=== PATIENT | male | born 1960 | race Hispanic/Latino ===

== ENCOUNTER 2018-07-01 06:12 | Day surgery (SDC) | payer MEDICAID ==
[~2018-07-01] VITALS: Ht 170.2 cm; Wt 77.5 kg
[~2018-07-01 06:12] MED LIST: ALLO300T2 PO; BUSP10TA3 PO; SERT100T12 PO; SODIUM CHLORIDE 0.9% 1000ML 1,000 ML IV ONE; TAMS0.4C32 PO; TRAZ-187 PO; ZOLP10TA6 PO
[2018-07-01 06:40] VITALS: BP 119/57
[2018-07-01] MEDS ORDERED: PROPOFOL 10 MG/ML 20ML VIAL IV ONE ×3 (10:51→11:09)
[2018-07-01 11:16] VITALS: BP 105/57
[2018-07-01 11:21] VITALS: BP 91/53
[2018-07-01 11:26] VITALS: BP 99/55
[2018-07-01 11:31] VITALS: BP 110/59
[2018-07-01 11:37] VITALS: BP 113/67
== END 2018-07-01 11:55 | disposition home or self-care (01) ==
LOC: DAH 06:12 → ENDO 06:12
PROVIDERS: ATTEND Internal Medicine
DX: Z12.11 Encounter for screening for malignant neoplasm of colon (principal); K29.50 Unspecified chronic gastritis without bleeding; B96.81 Helicobacter pylori [H. pylori] as the cause of diseases classified elsewhere; F32.9 Major depressive disorder, single episode, unspecified; M19.90 Unspecified osteoarthritis, unspecified site; M81.0 Age-related osteoporosis without current pathological fracture; E78.5 Hyperlipidemia, unspecified; I10 Essential (primary) hypertension; F41.9 Anxiety disorder, unspecified; Z79.899 Other long term (current) drug therapy; Z88.8 Allergy status to other drugs, medicaments and biological substances; Z98.84 Bariatric surgery status; Z98.890 Other specified postprocedural states; Z90.49 Acquired absence of other specified parts of digestive tract; Z96.653 Presence of artificial knee joint, bilateral; Z83.3 Family history of diabetes mellitus; Z82.49 Family history of ischemic heart disease and other diseases of the circulatory system
CPT/HCPCS: 43239; 45378; 88305; A4606; J2704 ×3; J7030